=== PATIENT | female | born 1990 | race Caucasian/White ===

== ENCOUNTER 2023-01-24 19:19 | Emergency (ER) | payer SELFPAY ==
[2023-01-24 19:52] VITALS: BP 121/79; PULSE 68; RESP 18; TEMP 36.6; O2SAT 100
--- NOTE | 2023-01-24 21:18 | PC.NURSE ---
no answer at triage
== END 2023-01-24 21:18 | disposition left against medical advice (07) ==
DX: S09.92XA Unspecified injury of nose, initial encounter (principal); W50.0XXA Accidental hit or strike by another person, initial encounter; Y93.89 Activity, other specified
CPT/HCPCS: 99199

== ENCOUNTER 2023-07-19 09:17 | Outpatient (CLI) | payer OTHER, SELFPAY ==
[2023-07-19 09:45] LABS: Hematocrit 40.5 % (37.0-47.0); Hemoglobin 12.7 g/dL (12.0-15.0); Mean Corpuscular HGB Conc 31.4 g/dl (32-36); Mean Corpuscular Hemoglobin 27.5 pg (26-34); Mean Corpuscular Volume 87.7 fl (80-100); Mean Platelet Volume 9.2 fl (7.4-10.4); Platelet Count Result 332 k/mm3 (150-375); Red Blood Count 4.62 M/mm3 (4.2-5.4); Red Cell Distribution Width 13.7 % (11.5-14.5); White Blood Count 5.5 K/mm3 (4.5-10.0)
[2023-07-19 09:56] LABS: Alanine Aminotransferase 21 U/L (6-35); Alkaline Phosphatase 53 U/L (38-126); Anion Gap 3 mmol/L (8-16); Aspartate Amino Transferase 33 U/L (14-36); Bilirubin,Total 0.4 mg/dL (0.2-1.3); Blood Urea Nitrogen 15 mg/dL (7-17); CRP < 0.5 mg/dL (<1.0); Calcium 9.3 mg/dL (8.4-10.2); Carbon Dioxide 31 mmol/L (22-30); Chloride 104 mmol/L (98-107); Cholesterol 108 mg/dL (0-200); Estimated Glomerular Filt Rate > 60; Glucose 95 mg/dL (65-110); HDL Direct 64 mg/dL; Potassium 4.1 mmol/L (3.4-5.0); Sodium 138 mmol/L (137-145); Triglycerides 66 mg/dL (<150)
[2023-07-19 09:58] LABS: Rheumatoid Factor 21.9 IU/ML (<12)
[2023-07-19 10:05] LABS: LDL Cholesterol Direct 32 mg/dL
[2023-07-19 10:24] LABS: Erythrocyte Sedimentation Rate 17 mm/hr (0-20)
[2023-07-19 11:20] LABS: Vitamin D 25 Hydroxy 54.5 ng/mL
[2023-07-22 21:56] LABS: Anti Cyclic Citrullinated Pept 182 Units (<20)
== END 2023-07-19 09:18 | disposition home or self-care (01) ==
LOC: ANHLAB 09:23
PROVIDERS: PCP Nurse Practitioner Family; Visit Provider Nurse Practitioner Family
DX: I73.00 Raynaud's syndrome without gangrene (principal); M25.50 Pain in unspecified joint; Z13.220 Encounter for screening for lipoid disorders
CPT/HCPCS: 36415; 80053; 80061; 82306; 84443; 85027; 85652; 86038; 86039; 86140; 86200; 86430